=== PATIENT | male | born 1980 | race African-American/Black ===

== ENCOUNTER 2021-12-10 16:51 | Emergency (ER) | payer OTHER ==
[2021-12-10 17:08] VITALS: BP 115/69; PULSE 66; TEMP 98; BMI 25.1
[2021-12-10] MEDS ORDERED: KETOROLAC TROMETHAMINE 30 MG/1 ML VIAL IM ONE (17:49)
[2021-12-10] MEDS ORDERED: KETOROLAC TROMETHAMINE 30 MG/1 ML VIAL ONE (18:14)
[2021-12-10] MEDS ORDERED: IBUPROFEN 400 MG TABLET (FP) PO ONE (18:47)
== END 2021-12-10 19:49 | disposition home or self-care (01) ==
LOC: JERFT 16:51
DX: M54.2 Cervicalgia (principal); M54.50 Low back pain, unspecified; V49.50XA Passenger injured in collision with unspecified motor vehicles in traffic accident, initial encounter
CPT/HCPCS: 72040-TC; 72100-TC-FY; 99284-25

== ENCOUNTER 2024-11-07 13:19 | Emergency (ER) | payer OTHER ==
[2024-11-07 13:28] VITALS: BP 108/56; PULSE 67; RESP 18; TEMP 98.4; BMI 25.1
[2024-11-07] MEDS: SODIUM CHLORIDE 1,000 ML IV STA (14:50)
[2024-11-07 15:10] LABS: BASO % 0.9 % (0-2.0); EOS % 3.7 % (0-4.5); HEMOGLOBIN 13.2 GM/dL (11.7-16.9); LYMPH % 37.1 % (8-40); MCH 29.9 pg (25.7-33.7); MCHC 33.1 g/dl (32.0-35.9); MEAN CELL VOLUME 90.4 fl (80-96); MEAN PLT VOLUME 8.2 fl (7.5-11.1); MONO % 10.9 % (3.8-10.2); NEUT % 47.4 % (42.8-82.8); PLATELET COUNT 273 10^3/uL (134-434); RBC 4.43 M/mm3 (4.00-5.60); RDW 13.5 % (11.9-15.9); WHITE BLOOD COUNT 4.1 K/mm3 (4.0-10.0)
[2024-11-07 16:05] LABS: POTASSIUM 4.2 mmol/L (3.5-5.1)
[2024-11-07 16:06] LABS: CALCIUM 9.3 mg/dL (8.5-10.1)
[2024-11-07 16:07] LABS: ALBUMIN 3.9 g/dl (3.4-5.0)
[2024-11-07 16:08] LABS: BLOOD UREA NITROGEN 15.2 mg/dL (7-18)
[2024-11-07 16:10] LABS: CREATININE 0.9 mg/dL (0.55-1.3)
[2024-11-07 16:12] LABS: BILIRUBIN,TOTAL 0.3 mg/dL (0.2-1); TOT PROT 7.3 g/dl (6.4-8.2)
[2024-11-07 16:25] LABS: HIV INTERPRETATION NEGATIVE (NEGATIVE)
== END 2024-11-07 16:39 | disposition home or self-care (01) ==
LOC: JER 13:19
PROC: 3E033GC Introduction of Other Therapeutic Substance into Peripheral Vein, Percutaneous Approach (ICD-10-PCS; principal; 2024-11-07)
PROC: 3E0337Z Introduction of Electrolytic and Water Balance Substance into Peripheral Vein, Percutaneous Approach (ICD-10-PCS; 2024-11-07)
DX: R07.89 Other chest pain (principal); L29.9 Pruritus, unspecified
CPT/HCPCS: 36415; 71046-TC-FY; 80053; 84484; 85025; 86803; 87389; 93005; 93010; 99285-25